=== PATIENT | male | born 1990 ===

== ENCOUNTER 2016-12-24 16:58 | Emergency (ER) | payer OTHER ==
[2016-12-24] MEDS ORDERED: Tetan/Diph/Pertus SYR(Tdap)* 0.5 ML SYR(BOOSTRIX) use SYR IM ONE (17:38)
--- NOTE | 2016-12-24 18:00 | UC ---
Laceration HPI - HPI Summary HPI Summary: Pt presents with c/o of laceration to right mid anterior garcia. Pt reports that he threw a knife and it "hit a tree, bounced off" and cut his right garcia. - History Of Current Complaint Stated Complaint: RIGHT LEG LAC Time Seen by Provider: 12/24/16 17:12 Hx Obtained From: Patient Laceration Location: Calf - rigth anterior mmedial upper garcia. Mechanism Of Injury: Sharp Trauma Onset/Duration: Sudden Onset Severity: Mild Aggravating Factors: Movement - Allergies/Home Medications Allergies/Adverse Reactions: Allergies Allergy/AdvReac Type Severity Reaction Status Date / Time [facility]ef[facility] [[facility] [place] Allergy Unknown Verified 12/24/16 17:27 Reaction Details Home Medications: Home Medications Ibuprofen TAB* [Advil TAB*] 200 mg PO Q6H PRN 12/24/16 [History Confirmed ] PMH/Surg Hx/FS Hx/Imm Hx Previously Healthy: Yes - Surgical History Surgical History: Yes Surgery Procedure, Year, and Place: right ankle surgery x2, right carpal tunnel - Family History Known Family History: Positive: Other - positive [facility] for laceration - Social History Occupation: Employed Full-time - as a hay Alcohol Use: None Substance Use Type: None Smoking Status (MU): Light Every Day Tobacco Smoker Type: Cigarettes Amount Used/How Often: 1/2 PPD - Immunization History Most Recent Influenza Vaccination: 2009 Review of Systems Constitutional: Negative Skin: Other - lacertion right anterior lower extremity Eyes: Negative ENT: Negative Respiratory: Negative Cardiovascular: Negative Gastrointestinal: Negative Genitourinary: Negative Motor: Negative Neurovascular: Negative Musculoskeletal: Negative Neurological: Negative, Headache All Other Systems Reviewed And Are Negative: Yes Physical Exam Triage Information Reviewed: Yes Appearance: Well-Appearing Vital Signs: Initial Vital Signs Temp 99.3 F 12/24/16 17:29 Pulse 76 12/24/16 17:29 Resp 16 12/24/16 17:29 BP 141/66 12/24/16 17:29 Pulse Ox 100 12/24/16 17:29 Eye Exam: Normal Respiratory: Positive: No respiratory distress Musculoskeletal Exam: Normal Neurological Exam: Normal Psychological Exam: Normal Skin Exam: Other - lacedration right anterori medial lower extremity Laceration Repair - Laceration Repair 1 Description: Linear Laceration Size After Repair: Length (cm) - 2, Width (mm) - 10, Depth (mm) - 3 Modified For Repair: No Irrigation With Pressure Irrigation Device: Yes Closure Material: Skin Adhesive, SteriStrips Closure Method: Single Layer Suture Of: Skin - Pt refused suture and or staple repair for laceration. I advised the patient the his laceration would best heal with structural support such as sutures or petrona for better healing and less scarrign but pt refused either option. Laceration Course/Dx - Course/Dx Course Of Treatment: Pt refused suture and or staple repair for laceration. I advised the patient the his laceration would best heal with structural support such as sutures or petrona for better healing and less scarrign but pt refused either option. I reviewd the probale outcome fo longer healing time, increased infection risk and significant scarring but pt refused the options for suture repair. Pt verbalized understanding and agreed to plan of care. - Differential Dx - Laceration/Wound Differental Diagnoses: Laceration Provider Diagnoses: laceration to right anterior lower extremity. repaired with skin adhesive and steri strips Discharge - Discharge Plan Condition: Stable Disposition: HOME Prescriptions: Sulfamethox/Trimethoprim DS* [Bactrim DS 800/160 TAB*] 1 tab PO Q12H #14 tab Patient Education Materials: Laceration (ED), Skin Adhesive Care (ED) Referrals: [facility] [Outside] Additional Instructions: Please follow up with your PCP as needed or return to clinic. You have declined closure of your wound by sutures or petrona. Please monitor for signs and symptoms of infection that include but not limited to erythema, tenderness, purulent discharge, and/or fever. Please keep your wound clean and dry for at least 4 days. Change the dressing twice daily or if it becomes soiled. Do not apply antibiotic ointment to wound. Do not remove steri strips until they fall off on their own.
[2016-12-24] MEDS ORDERED: Sulfamethox/Trimethoprim DS 800/160* TAB PO ONE (18:08)
== END 2016-12-24 18:26 | disposition home or self-care (01) ==
LOC: UCCORT 16:58
DX: S81.811A Laceration without foreign body, right lower leg, initial encounter (principal); W26.0XXA Contact with knife, initial encounter; F17.210 Nicotine dependence, cigarettes, uncomplicated
CPT/HCPCS: 12001; 90471; 90715; 99202; A9270-GY; G0463